=== PATIENT | female | born 1950 ===

== ENCOUNTER 2022-07-18 11:43 | Inpatient (IN) | payer OTHER ==
[~2022-07-18] VITALS: Ht 167.6 cm; Wt 54.0 kg
[2022-07-18] MEDS ORDERED: DIOVAN160 M1 PO (14:51)
[2022-07-18] MEDS ORDERED: SYNTHROID75 MCG PO (14:51)
[2022-07-18] MEDS ORDERED: ZETIA10 MG PO (14:52)
[2022-07-18] MEDS ORDERED: CRESTOR5 MG PO (14:52)
[2022-08-01] MEDS ORDERED: TRAM1TAB98 PO (10:52)
[2022-08-01] MEDS ORDERED: HYOSCYAMINE0.125 M1 SL (10:52)
[2022-08-01] MEDS ORDERED: PEPCID AC20 MG PO (10:53)
[2022-08-01] MEDS ORDERED: INTESTINEX680 M1 PO (10:53)
== END 2022-08-01 11:10 | disposition home or self-care (01) | DRG 331 ==
LOC: SURG 07-25 10:45 → O/R 07-29 07:07 → SURH 07-29 13:47
PROVIDERS: ADMIT Surgery; ATTEND Surgery
PROC: 0DTN4ZZ Resection of Sigmoid Colon, Percutaneous Endoscopic Approach (ICD-10-PCS; principal; 2022-07-30)
PROC: 0DBP4ZZ Excision of Rectum, Percutaneous Endoscopic Approach (ICD-10-PCS; 2022-07-30)
PROC: 0DQ84ZZ Repair Small Intestine, Percutaneous Endoscopic Approach (ICD-10-PCS; 2022-07-30)
PROC: 0DJD8ZZ Inspection of Lower Intestinal Tract, Via Natural or Artificial Opening Endoscopic (ICD-10-PCS; 2022-07-30)
DX: K57.20 Diverticulitis of large intestine with perforation and abscess without bleeding (principal); R10.32 Left lower quadrant pain; N73.6 Female pelvic peritoneal adhesions (postinfective); N99.4 Postprocedural pelvic peritoneal adhesions; I11.9 Hypertensive heart disease without heart failure; Z20.822 Contact with and (suspected) exposure to COVID-19